=== PATIENT | male | born 1955 | race Caucasian/White ===

== ENCOUNTER 2017-10-25 05:52 | Emergency (ER) | payer BC ==
[~2017-10-25 05:52] MED LIST: BUPROPRION PO; CIPRO 500MG TA500 MG PO; COLACE 100100 MG/CAP PO; CORGARD20 MG PO; DIAMOX 250MG250 MG PO; DOXEPIN25 MG PO; FLOMAX0.4 MG PO; LASIX20 MG PO; NITROSTAT0.4 MG/TAB SL; NORCO 325 MG-51 TAB PO; OMNICEF 300MG300 MG PO; OXYCODONE5 M1 PO; PROTONIX 40MG T40 MG PO; PYRIDIUM200 M1 PO; SEPTRA DS 8001 TAB PO; VIREAD PO; WELLBUTRIN SR150 M1 PO
[2017-10-25] MEDS ORDERED: ROXICODONE 55 MG/TAB PO (06:40)
[2017-10-25] MEDS ORDERED: CORTISPORIN OTI10 ML OT (07:13)
[2017-10-25 07:20] VITALS: BP 134/79; PULSE 77; TEMP 97.7
== END 2017-10-25 07:19 | disposition home or self-care (01) ==
LOC: COL.ER 05:52
DX: T16.1XXA Foreign body in right ear, initial encounter (principal); B19.9 Unspecified viral hepatitis without hepatic coma; F17.210 Nicotine dependence, cigarettes, uncomplicated; X58.XXXA Exposure to other specified factors, initial encounter

== ENCOUNTER → 2020-05-02 | Outpatient (CLI) | payer BC ==
[~2020-05-02] MED LIST changes: +CORTISPORIN OTI10 ML OT; +ROXICODONE 55 MG/TAB PO
== END ==
LOC: COL.RAD 09:40
DX: K74.60 Unspecified cirrhosis of liver (principal); B18.1 Chronic viral hepatitis B without delta-agent

== ENCOUNTER 2020-09-02 13:58 | Emergency (ER) | payer BC ==
[~2020-09-02] VITALS: Ht 177.8 cm; Wt 70.5 kg
[2020-09-02 14:03] VITALS: TEMP 97.5
[2020-09-02 14:19] LABS: BASO % 0.5 % (0.0-2.0); EOS # 0.2 (0.0-0.7); EOS % 2.1 % (0-4.0); GRAN # 5.8 (1.4-6.5); GRAN % 66.9 % (42.2-75.2); HEMATOCRIT 51.2 % (42.0-52.0); LYMPH % 22.8 % (20.0-51.0); MEAN CELL VOLUME 99 fl (80.0-100.0); MEAN CORPUSCULAR HEMOGLOBIN 33 pg (27.0-31.0); MEAN CORPUSCULAR HGB CONC 33 g/dl (33.0-37.0); MEAN PLATELET VOLUME 9.8 fl (7.4-10.4); MONO # 0.6 (0.1-0.6); MONO % 7.4 % (1.7-9.3); PLATELET COUNT 156 K/mm3 (130-400); REDCELL DISTRIBUTION WIDTH-CV 12.9 % (11.5-14.5)
[2020-09-02 14:21] LABS: INR 1.2 (0.8-3.0); PROTHROMBIN TIME 13.2 SECONDS (9.7-12.8)
[2020-09-02 14:23] LABS: ALANINE AMINOTRANSFERASE 35 U/L (4-49); ALKALINE PHOSPHATASE 76 U/L (50-136); ANION GAP 10 mmol/L (7-16); AST,SGOT 39 U/L (15-37); BILIRUBIN,TOTAL 0.9 mg/dL (0.0-1.0); BLOOD UREA NITROGEN 15 mg/dL (9-20); CALCIUM 10.1 mg/dL (8.4-10.2); CARBON DIOXIDE 27 mmol/L (22-30); CHLORIDE 101 mmol/L (98-107); CREATININE, serum 1.35 (0.66-1.25); GLUCOSE 132 mg/dL (74-106); POTASSIUM 4.4 mmol/L (3.4-5.0); SODIUM 138 mmol/L (137-145); TOTAL PROTEIN 8.9 gm/dL (6.4-8.2)
[2020-09-02 14:36] LABS: TROPONIN-I < 0.012 ng/mL (0.000-0.035)
[2020-09-02] MEDS ORDERED: ZOFRAN ODT4 MG PO (16:59)
[2020-09-02 17:14] VITALS: BP 138/98; PULSE 97
== END 2020-09-02 17:13 | disposition home or self-care (01) ==
LOC: COL.ER 13:58
PROVIDERS: Family Medicine
DX: F41.9 Anxiety disorder, unspecified (principal); R07.89 Other chest pain
CPT/HCPCS: J2060; J2405; J7120

== ENCOUNTER 2020-10-27 11:59 | Day surgery (SDC) | payer BC ==
[~2020-10-27] VITALS: Ht 177.8 cm; Wt 71.8 kg
[2020-10-27] VITALS (11 sets, daily range): BP systolic 90–126; BP diastolic 58–77; PULSE 70–86; TEMP 97.5–98.8
[~2020-10-27 11:59] MED LIST changes: +ZOFRAN ODT4 MG PO
[2020-10-27] MEDS ORDERED: ATARAX 25MG25 MG/TAB PO (12:32)
[2020-10-27] MEDS ORDERED: BUSPAR10 MG PO (12:32)
--- NOTE | 2020-10-27 15:15 | NUR ---
PATIENT ADMITED INTO ROOM 347 POST OP TURP. A&O. VSS. DENIES PAIN OR N/V. IV FLUIDS INFUSING INTO RIGHT WRIST IV. MOHAMUD TO DD WITH SMALL AMOUNTS OF CLEAR YELLOW URINE NOTED. CBI INFUSING AT MOD RATE. HEAD TO TOE ASSESSMENT COMPLETE. SCD'S TO BLE. ORIENTED TO ROOM. CALL LIGHT IN REACH.
--- NOTE | 2020-10-27 19:14 | NUR ---
Sitting up in bed communicating with family, awake, alert, oriented x 4, updated on plan of care, CBI infusing w/o difficulty, marcum draining per gravity, VS stable, uses call evans appropriately.
--- NOTE | 2020-10-27 20:12 | NUR ---
Call placed to Dr. Hannah re: hs medication clarifications, no answer- message left- awaiting call back
--- NOTE | 2020-10-27 20:26 | NUR ---
Spoke with Dr. Mccarthy, NON: D/C IV fluids and saline lock, Increase Nadol to 40mg po qd, change Viread to QHS, updated patient on changes- verbalizes understanding.
[2020-10-28] VITALS (7 sets, daily range): BP systolic 98–109; BP diastolic 53–69; PULSE 61–73; TEMP 97.4–98.5
--- NOTE | 2020-10-28 11:53 | NUR ---
SW spoke with patient to conduct intake evaluation. Patient lives at home in [place] with friend Russ Sarmiento (P# [phone], ). Patient does not have DPOA and was not interested in paperwork at this time. Patient's PCP is Dr. Sifuentes and patient uses [facility]. Patient denies needing assistance with ADLs, and uses no DME. Patient denies needing assistance affording medication. Patient plans to return home with Russ providing transportation. Patient denies questions or concerns at this time. SW will continue to follow.
--- NOTE | 2020-10-28 12:30 | NUR ---
Marcum catheter discontinued. Explained how the six cup routine works. 200ml of saline instilled into the bladder. Removed 30ml from catheter balloon and removed marcum. Patient has urinal at bedside. Encouraged patient to get up and move around more now that the catheter has been discontinued. Explained the plan for discharge. No other changes at this time. Call light within reach.
--- NOTE | 2020-10-28 16:00 | NUR ---
Patient started to vomit. He is having nausea. His IV has already been removed. Zofran ODT given as ordered. He initially thought he was getting sick because of all the water he drank but is now dry heaving and has a headache. He is still hoping to go home. He stated this happened to him not long before this admission and he had to go to the ED. He is going to lay down and rest and see if he feels better. No other changes at this time. Call light within reach.
--- NOTE | 2020-10-28 18:30 | NUR ---
Patient is going to stay the night. He is still having some nausea and a slight headache. He was worried about going home and getting worse. His urine is light pink and clear. He is voiding without issues. No other changes at this time. Call light within reach.
--- NOTE | 2020-10-29 03:49 | NUR ---
Rested quietly throughout night, no c/o at this time, denies nausea, denies headache, urinating clear yellow w/o issue, VS stable, updated on plan of care.
[2020-10-29 04:01] VITALS: BP 99/55; PULSE 70; TEMP 98.1
[2020-10-29 07:29] VITALS: BP 111/79; PULSE 73; TEMP 97.6
--- NOTE | 2020-10-29 08:15 | NUR ---
Patient is discharging home. He is feeling better today as far as his surgery. He continues to have nausea but he is going to follow up with his PCP for it, since this has happened before. Did not vomit today. He had a light snack this morning and kept it down. Discharge instructions discussed with patient. He stated he does not have a follow up appointment with Dr Esparza, let him know to call the office tomorrow morning for his follow up. No questions asked. All belongings packed up and sent with patient. Copies of discharge instructions sent with him. Patient walked out with this nurse.
== END 2020-10-29 08:30 | disposition home or self-care (01) ==
LOC: SDCO 11:59 → SURG 15:15 → SDCO 10-29 08:30
DX: N40.1 Benign prostatic hyperplasia with lower urinary tract symptoms (principal); N13.8 Other obstructive and reflux uropathy; F40.240 Claustrophobia; J44.9 Chronic obstructive pulmonary disease, unspecified; F17.210 Nicotine dependence, cigarettes, uncomplicated; F32.9 Major depressive disorder, single episode, unspecified; F41.9 Anxiety disorder, unspecified
CPT/HCPCS: OP; J0690; J1100; J1885; J2370; J2405; J2704; J3010; J7120

== ENCOUNTER → 2020-12-27 | Outpatient (CLI) | payer BC ==
[~2020-12-27] MED LIST changes: +ATARAX 25MG25 MG/TAB PO; +BUSPAR10 MG PO
== END ==
LOC: COL.RAD 11:03
DX: I70.0 Atherosclerosis of aorta (principal); J84.10 Pulmonary fibrosis, unspecified; J43.9 Emphysema, unspecified; R11.0 Nausea; R10.30 Lower abdominal pain, unspecified; Z86.010 Personal history of colon polyps
CPT/HCPCS: Q9967

== ENCOUNTER 2022-01-23 09:07 | Outpatient (RCR) | payer MEDICARE ==
[~2022-01-23] VITALS: Ht 177.8 cm; Wt 68.8 kg
[2022-01-23 10:30] VITALS: BP 132/78; PULSE 87; TEMP 98
[2022-01-23] MEDS ORDERED: XANAX .25M0.25 MG/TA PO (10:35)
[2022-01-23] MEDS ORDERED: MILK THISTLE150 MG PO (10:36)
[2022-01-23] MEDS ORDERED: LEXAPRO 10MG10 MG PO (10:36)
[2022-01-23] MEDS ORDERED: PRILOSEC 20MG20 MG PO (10:36)
[2022-01-23] MEDS ORDERED: TRELEGY ELLIPT1 EACH IH (10:37)
[2022-01-23] MEDS ORDERED: ZOFRAN 4MG T4 MG/TAB PO (10:37)
[2022-01-23] MEDS ORDERED: VITAMIND3 5000 PO (10:38)
--- NOTE | 2022-01-23 11:08 | NUR ---
VS remained stable. Pt has not dizziness, rash, headache or SOB. IV dc'd. Pt taken out for discharge.
== END 2022-01-23 13:09 | disposition home or self-care (01) ==
LOC: EUO 09:07
DX: U07.1 COVID-19 (principal); N18.9 Chronic kidney disease, unspecified
CPT/HCPCS: M0222; Q0222